=== PATIENT | male | born 1975 | race African-American/Black ===

== ENCOUNTER 2022-11-06 00:56 | Emergency (ER) | payer BC ==
[2022-11-06] MEDS ORDERED: Dexamethasone 10 MG/ML VIAL ONE (01:40)
[2022-11-06] MEDS ORDERED: FENTANYL 50 MCG/ML 1 ML VIAL ONE (01:40)
[2022-11-06 01:47] LABS: #Basophils 0.1 thou/uL (0.0-0.2); #Eosinphils 0.4 thou/uL (0.0-0.7); #Lymphocytes 1.9 thou/uL (1.20-3.40); #Monocytes 0.8 thou/uL (0.11-0.59); #Neutrophils 4.7 thou/uL (1.40-6.50); %Basophils 0.9 % (0.0-1.0); %Eosinophils 5.1 % (0.0-10.0); %Lymphocytes 23.6 % (21.0-51.0); %Monocytes 10.3 % (0.0-10.0); %Neutrophils 60.1 % (42.0-75.0); Hemoglobin 13.2 g/dL (14.0-18.0); Mean Corpuscular Hemoglobin 29.8 pg (27.0-31.0); Mean Corpuscular Volume 90.4 fl (78.0-98.0); Mean Platelet Volume 7.8 fL (7.4-10.4); Platelet Count 174 10x3/uL (130-400); RBC Distribution Width 12.8 % (11.5-14.5); Red Blood Cell (RBC) Count 4.43 mill/uL (4.70-6.10); White Blood Cell (WBC) Count 7.9 10x3/uL (4.8-10.8)
[2022-11-06 02:09] LABS: ALT (SGPT) 18 U/L (8-55); AST (SGOT) 21 U/L (5-34); Albumin 4.4 g/dL (3.5-5.0); Alkaline Phosphatase 57 U/L (40-110); Anion Gap 12 mmol/L (10-20); BUN (Urea Nitrogen) 15 mg/dL (8.9-20.6); Bilirubin, Total 0.4 mg/dL (0.2-1.2); Calc. Creatinine Clearance 0 mL/min (70-130); Calcium 9.4 mg/dL (7.8-10.44); Carbon Dioxide 25 mmol/L (22-29); Chloride 105 mmol/L (98-107); Estimated GFR 102; Globulin 2.9 g/dL (2.4-3.5); Glucose 118 mg/dL (70-105); Lipase 199 U/L (8-78); Potassium 3.8 mmol/L (3.5-5.1); Protein, Total 7.3 g/dL (6.0-8.3); Sodium 138 mmol/L (136-145)
[2022-11-06 02:16] LABS: CK (CPK) 283 U/L (30-200)
[2022-11-06 02:30] LABS: CKMB 1.1 ng/mL (0-6.6)
[2022-11-06 03:23] LABS: Troponin I 0.052 ng/mL (< 0.028)
[2022-11-06] MEDS ORDERED: Morphine 4 MG/ML VIAL ONE (04:10)
[2022-11-06] MEDS ORDERED: HYDROcodone/Acetaminophen 10/325 mg Tablet ONE (04:12)
== END 2022-11-06 04:21 | disposition home or self-care (01) ==
LOC: ERS 00:56
DX: M25.512 Pain in left shoulder (principal); I50.9 Heart failure, unspecified; R79.89 Other specified abnormal findings of blood chemistry
CPT/HCPCS: 36415; 71045; 80053; 82550; 82553; 83690; 83880; 84484; 85025; 85379; 93005; 96374; 96375; J1100; J2270; J3010

== ENCOUNTER 2024-05-15 05:56 | Day surgery (SDC) | payer BC ==
[2024-05-14 09:43] VITALS: BMI 29.9
[2024-05-15] MEDS ORDERED: PROPOFOL 40 ML ONE (07:16)
[2024-05-15] MEDS ORDERED: Lidocaine 2% PF 5 ML VIAL ONE (07:17)
[2024-05-15] MEDS ORDERED: PROPOFOL 20 ML ONE (07:58)
== END 2024-05-15 09:10 | disposition home or self-care (01) ==
LOC: SDC 05:56
PROVIDERS: ATTEND Internal Medicine
PROC: 0DJD8ZZ Inspection of Lower Intestinal Tract, Via Natural or Artificial Opening Endoscopic (ICD-10-PCS; principal; 2024-05-15)
DX: Z12.11 Encounter for screening for malignant neoplasm of colon (principal); I11.0 Hypertensive heart disease with heart failure; I50.9 Heart failure, unspecified; Z79.899 Other long term (current) drug therapy
CPT/HCPCS: J2001; J2704